=== PATIENT | male | born 1965 | race Caucasian/White ===

== ENCOUNTER → 2018-06-14 11:51 | Outpatient (CLI) | payer OTHER, SELFPAY ==
--- NOTE | 2018-06-14 | DI.MRI.S_ITS ---
PROCEDURE: MR KNEE RT WO CON INDICATIONS: INTERNAL DERANGEMENT OF RIGHT KNEE TECHNIQUE: Noncontrast sagittal PD fast spin echo and T2 fast spin echo with fat saturation, sagittal 3-D FLASH with fat saturation; coronal T1 spin echo and PD fast spin echo with fat saturation, and axial PD fast spin echo with fat saturation through the knee. COMPARISON: None. FINDINGS: Image quality: Excellent. Menisci: Ill-defined intrasubstance signal change and contour irregularity involving the posterior horn of the medial meniscus extending to the undersurface suggestive of nondisplaced tear. A multiloculated appearing 7 mm posterior para-labral cyst is seen on image 22 series 8 Lateral meniscus appears grossly intact. Cruciate ligaments: Status post anterior cruciate ligament reconstruction. However in the expected region of the graft there is heterogeneous signal change and abnormal appearance of the visualized graft fibers suggestive of graft insufficiency/degeneration or rupture. The posterior cruciate ligament appears grossly intact Medial structures: The medial collateral ligament appears intact. The posterior oblique ligament, semimembranosus tendon insertions, oblique popliteal ligament, and meniscocapsular junction appear intact. Visualized portions of the pes anserinus tendons appear normal. No abnormal bursal fluid. Lateral structures: Age-indeterminate low-grade sprain of the proximal lateral collateral ligament. The biceps femoris tendon appears intact. The popliteus tendon appears normal; the popliteofibular ligament appears intact. The posterosuperior and anteroinferior popliteomeniscal fascicles appear intact. The arcuate and fabellofibular ligaments appear intact, on either side of the lateral inferior geniculate artery. Iliotibial band appears normal. Anterior structures: The quadriceps and patellar tendons appear intact. Minimal proximal and distal patellar tendinopathy. Patellar alignment is normal. No femoral trochlear dysplasia or ventral trochlear prominence. No edema in the infrapatellar fat pad. Bones and cartilage: No bone marrow contusions or fractures. Within the medial compartment, no definite focal articular cartilage defect is seen. Within the lateral compartment, the articular cartilage appears grossly preserved. Within the patellofemoral compartment, articular cartilage appears grossly preserved. Joint space: There is moderate joint effusion. Small Campuzano's cyst. IMPRESSION: Status post ACL reconstruction however irregular, poorly visualized appearance of the graft suggesting graft rupture, or advanced mucoid degeneration. Please correlate with exam findings. Suspect nondisplaced undersurface tear involving the posterior horn of the medial meniscus. 7 mm posteromedial para-meniscal cyst Small Campuzano's cyst. Moderate joint effusion Mild proximal and distal patellar tendinopathy Dictated by: Geovanni Slainas M.D. on 06/14/2018 at 14:07 Approved by: Geovanni Salinas M.D. on 06/14/2018 at 14:31
== END ==
PROVIDERS: Visit Provider Orthopaedic Surgery
DX: M23.91 Unspecified internal derangement of right knee (principal); M71.21 Synovial cyst of popliteal space [Baker], right knee; M25.461 Effusion, right knee; M67.961 Unspecified disorder of synovium and tendon, right lower leg
CPT/HCPCS: 73721